=== PATIENT | male | born 1995 | race Caucasian/White ===

== ENCOUNTER → 2016-09-21 | Outpatient (CLI) | payer OTHER ==
--- NOTE | 2016-09-21 13:26 | RAD ---
Indication injury, pain. AP oblique and lateral views of the right knee were obtained. No acute or significant bony finding is seen
--- NOTE | 2016-09-21 13:27 | RAD ---
Indication injury, pain. AP and lateral views of the right tibia and fibula were obtained. No bony abnormality is seen
== END | disposition home or self-care (01) ==
LOC: DXRAD 12:57
PROVIDERS: ATTEND General Practice
DX: S87.81XA Crushing injury of right lower leg, initial encounter (principal); X58.XXXA Exposure to other specified factors, initial encounter; Y93.89 Activity, other specified; Y92.89 Other specified places as the place of occurrence of the external cause; Y99.8 Other external cause status
CPT/HCPCS: 73562; 73590